=== PATIENT | female | born 1945 | race Caucasian/White ===

== ENCOUNTER 2020-04-20 07:39 | Outpatient (CLI) | payer MEDICARE, SELFPAY ==
--- NOTE | ~2020-04-20 | US_ITS ---
EXAMINATION: US arterial duplex LE DATE: 04/20/2020 10:14 INDICATION: Bilateral lower limb pain TECHNIQUE: Multiple grayscale and Doppler ultrasound images of the arteries of the bilateral lower li mbs were obtained. COMPARISON: None FINDINGS: Biphasic waveform at the right profunda femoral artery and triphasic waveforms in the right common fe moral, superficial femoral, popliteal, posterior tibial and dorsalis pedis arteries with brisk systol ic upstrokes throughout. There is significant focal flow acceleration within the mid left superficial femoral artery consistent with significant stenosis with peak systolic velocity proximal to the sten osis of 108 cm/s which increases to 423 cm/s distal to the stenosis. There are monophasic waveforms t hroughout the arteries of the left lower limb without significantly delayed upstrokes. IMPRESSION: 1. Focal stenosis in the mid left superficial femoral artery with hemodynamically significant acceler ation of flow. 2. No no evident significant stenosis in the right lower limb. Reviewed, dictated and finalized at location B. IMPRESSION: 1. Focal stenosis in the mid left superficial femoral artery with hemodynamical ly significant acceleration of flow. 2. No no evident significant stenosis in the right lower limb.
== END 2020-04-20 07:40 | disposition home or self-care (01) ==
PROVIDERS: PCP Family Medicine; Visit Provider Nurse Practitioner Family
DX: I73.9 Peripheral vascular disease, unspecified (principal)
CPT/HCPCS: 93925

== ENCOUNTER → 2021-04-25 13:32 | Outpatient (CLI) | payer MEDICARE, SELFPAY ==
--- NOTE | ~2021-04-25 | MM_ITS ---
EXAMINATION: MM screening bob BI w radu HISTORY: Screening mammogram TECHNIQUE: Craniocaudal and mediolateral oblique 3-D tomosynthesis images were obtained and synthetic 2-D images were generated. CAD analysis was submitted and interpreted. COMPARISON: 06/07/2018, 05/15/2015, 12/03/2011 bilateral digital screening mammogram examinations BREAST PARENCHYMAL COMPOSITION: There are scattered areas of fibroglandular density. FINDINGS: There is no evidence of suspicious mass, calcification, or architectural distortion to sugg est malignancy in either breast. There has been no suspicious interval change. IMPRESSION: 1. No mammographic evidence of malignancy. 2. Recommend routine screening mammography in one year. BI-RADS Category 1: Negative Reviewed, dictated and finalized at location A.
== END ==
PROVIDERS: PCP Family Medicine; Visit Provider Family Medicine
DX: Z12.31 Encounter for screening mammogram for malignant neoplasm of breast (principal)
CPT/HCPCS: 77063; 77067

== ENCOUNTER 2021-06-19 07:32 | Outpatient (CLI) | payer MEDICARE, SELFPAY ==
--- NOTE | ~2021-06-19 | CT_ITS ---
EXAMINATION: CT diagnostic chest wo con DATE: 06/19/2021 07:55 INDICATION: Lung nodule TECHNIQUE: Computed tomography (CT) of the chest was performed without intravenous contrast. The dose -length product (DLP) was 420.04 mGy-cm. 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 COMPARISON: 04/11/2019 FINDINGS: There is a 5 mm lymph node in the minor fissure on the right. No suspicious pulmonary nodul es are identified. There is mild emphysema. There are patchy, peripheral prominent airspace opacities of the lungs (patient has history of COVID 19 pneumonia). There is no pleural effusion or pneumothor ax. No pathologically enlarged thoracic lymph nodes are identified. Cardiomegaly is noted. Calcified coronary artery atherosclerosis is noted. Stones are present in the gallbladder which is mildly diste nded. There is severe thoracic spondylosis. IMPRESSION: 1. Stable lymph node of the right minor fissure. 2. Patchy subpleural opacities of the lungs, likely related to history of COVID 19 pneumonia. 3. Cholelithiasis with gallbladder distention. Recommend correlation for right upper quadrant tendern ess which would be concerning for cholecystitis. Reviewed, dictated and finalized at location B. IMPRESSION: 1. Stable lymph node of the right minor fissure. 2. Patchy subpleural opacities of the lungs, likely related to history of COVID 19 pneumonia. 3. Cholelithiasis with gallbladder distention. Recommend correlation for right upper quadrant tenderness which would be concerning for cholecystitis.
== END 2021-06-19 07:33 | disposition home or self-care (01) ==
LOC: ANHIMG 07:38
PROVIDERS: PCP Family Medicine; Visit Provider Internal Medicine Pulmonary Disease
DX: J44.9 Chronic obstructive pulmonary disease, unspecified (principal); R91.1 Solitary pulmonary nodule; K80.20 Calculus of gallbladder without cholecystitis without obstruction
CPT/HCPCS: 71250

== ENCOUNTER → 2021-06-19 09:13 | Outpatient (CLI) | payer MEDICARE, SELFPAY ==
--- NOTE | ~2021-06-19 | XR_ITS ---
EXAMINATION: XR chest 2V DATE: 06/19/2021 09:28 INDICATION: History of COVID 19 TECHNIQUE: PA and lateral views of the chest are obtained. COMPARISON: Chest CT from today FINDINGS: There are patchy peripheral opacities of the lungs. There is no pleural effusion or pneumot horax. The cardiomediastinal silhouette is normal. There is severe thoracic spondylosis. IMPRESSION: 1. Patchy peripheral opacities of the lungs which are consistent with sequela of COVID 19 pneumonia. Correlate for any acute symptoms. Reviewed, dictated and finalized at location B. IMPRESSION: 1. Patchy peripheral opacities of the lungs which are consistent with sequela o f COVID 19 pneumonia. Correlate for any acute symptoms.
== END ==
PROVIDERS: PCP Family Medicine
DX: Z86.16 Personal history of COVID-19 (principal); M47.814 Spondylosis without myelopathy or radiculopathy, thoracic region
CPT/HCPCS: 71046

== ENCOUNTER 2021-06-21 10:22 | Emergency (ER) | payer MEDICARE, SELFPAY ==
[2021-06-21] VITALS (24 sets, daily range): BP systolic 141–201; BP diastolic 52–77; PULSE 51–81; RESP 14–27; TEMP 36.2; O2SAT 90–99
--- NOTE | ~2021-06-21 | XR_ITS ---
EXAMINATION: XR chest 2V EXAM DATE: 06/21/2021 10:50 INDICATION: Dull chest pain for 4 days. TECHNIQUE: Frontal and lateral projections of the chest obtained and reviewed. Comparison is made to prior examination from 06/19/2021. FINDINGS: There is cardiomegaly and pulmonary vascular congestion. Cardiomegaly and pulmonary vascul ar congestion. Scattered calcific densities, postinfectious. No confluent consolidation, pneumothorax or pleural effusion suspected. Moderate thoracic spondylosis. There is aortic arteriosclerosis. IMPRESSION: Cardiomegaly and pulmonary vascular congestion. Reviewed, dictated and finalized at location A.
--- NOTE | ~2021-06-21 | US_ITS ---
EXAMINATION: US venous doppler [facility] DATE: 06/21/2021 13:21 INDICATION: Bilateral lower limb swelling TECHNIQUE: Haley scale images without and with compression and Doppler images of the bilateral lower e xtremity veins were obtained. COMPARISON: 02/07/2019 FINDINGS: The examination is limited by the patient's body habitus. The right common femoral vein, profunda femoral vein, femoral vein, popliteal vein, and greater saphe nous vein are patent. The posterior tibial and peroneal veins are not well evaluated due to body habi tus. The left common femoral vein, profunda femoral vein, femoral vein, popliteal vein, and greater saphen ous vein are patent. The posterior tibial and peroneal veins are not well evaluated due to body habit us. IMPRESSION: 1. Patent bilateral lower extremity veins. No evidence of deep venous thrombosis. Bilateral posterior tibial and peroneal veins not well demonstrated due to body habitus. Reviewed, dictated and finalized at location B. IMPRESSION: 1. Patent bilateral lower extremity veins. No evidence of deep venous thrombosi s. Bilateral posterior tibial and peroneal veins not well demonstrated due to b reg habitus.
--- NOTE | 2021-06-21 10:36 | ECG_ITS ---
Measurements Intervals [place] Rate: 63 P: 42 MO: 164 QRS: -59 QRSD: 137 T: 72 QT: 406 QTc: 416 Interpretive Statements SINUS RHYTHM WITH MARKED SINUS ARRHYTHMIA LEFT AXIS DEVIATION INTRAVENTRICULAR CONDUCTION DELAY LEFT ANTERIOR FASCICULAR BLOCK LEFT VENTRICULAR HYPERTROPHY AND ST-T CHANGE POOR R WAVE PROGRESSION, ANTERIOR LEADS BASELINE ARTIFACT- I, II, III, AVR, AVL, AVF, V2-V6 ABNORMAL ECG Electronically Signed On 06-21-2021 10:39:41 CDT by Benton Singh D.O.
[2021-06-21 11:08] LABS: Basophils Percent Auto 0.4 % (0.2-1.2); Eosinophils Absolute Auto 0.1 K/mm3 (0-0.3); Eosinophils Percent Auto 1.3 % (0-4.4); Hematocrit 43.4 % (37.0-47.0); Hemoglobin 14.1 g/dL (12.0-15.0); Immature Granulocyte Absolute 0.05 K/mm3 (0.00-0.031); Immature Granulocyte Percent A 0.6 % (0-0.5); Lymphocytes Absolute Auto 1.35 K/mm3 (0.9-3.2); Lymphocytes Percent Auto 14.9 % (18.3-44.2); Mean Corpuscular HGB Conc 32.5 g/dl (32-36); Mean Corpuscular Hemoglobin 27.7 pg (26-34); Mean Corpuscular Volume 85.3 fl (80-100); Mean Platelet Volume 9.5 fl (7.4-10.4); Monocytes Absolute Auto 0.6 K/mm3 (0.1-0.6); Monocytes Percent Auto 6.3 % (2.6-8.5); Neutrophils Percent Auto 76.5 % (45.5-73.1); Platelet Count Result 334 k/mm3 (150-375); Red Blood Count 5.09 M/mm3 (4.2-5.4); Red Cell Distribution Width 13.5 % (11.5-14.5); White Blood Count 9.1 K/mm3 (4.5-10.0)
[2021-06-21 11:24] LABS: Anion Gap 11 mmol/L (8-16); Blood Urea Nitrogen 23 mg/dL (7-17); Calcium 10.8 mg/dL (8.4-10.2); Carbon Dioxide 27 mmol/L (22-30); Chloride 105 mmol/L (98-107); Estimated CRCL calculation 54 ml/min; Estimated Glomerular Filt Rate 48; Glucose 143 mg/dL (65-110); Sodium 143 mmol/L (137-145)
[2021-06-21 11:36] LABS: INR 0.9; Prothrombin Time 12.2 Seconds (11.1-14.7)
[2021-06-21 11:36] LABS: Troponin I < 0.012 ng/mL (0.000-0.034)
[2021-06-21 11:37] LABS: Partial Thromboplastin Time 23.5 SECONDS (22.3-36.8)
[2021-06-21 11:53] LABS: NT Pro B Type Natriuretic Pept 466 pg/mL (5-100)
--- NOTE | 2021-06-21 12:00 | PC.NURSE ---
Pt has bilateral leg swelling, reports right leg feels tighter than left although not obviously apparent on inspection. MD aware, ordering dopplers.
--- NOTE | 2021-06-21 12:14 | PC.NURSE ---
pt off floor for dopplers
--- NOTE | 2021-06-21 12:45 | ED.CHESTPAIN ---
HPI - Chest Pain General Chief Complaint: Chest Pain Stated Complaint: chest pain Time Seen by Provider: 06/21/21 10:33 History of Present Illness HPI narrative: Patient is a 76-year-old female who presents ER with concerns for chest pain. Patient reports 4 days ago she was having central chest pain and thinks it was related to her blood pressure being 210 mmHg systolic. She reports she took an extra dose of her medication her blood pressure normalized. She has been doing well since then. She saw her physician assistant press operator offset today who was concerned that patient was having some mild chest discomfort and had an abnormal EKG. She referred her to the ER for further evaluation. Patient reports she has a fringe maker at [facility]. She had a stress test last month that she believes was unremarkable. She reports compliance with home medications. She recently increased her spironolactone. Reports chronic shortness of breath related to COPD. The chest pain she currently has is left-sided and achy in the upper chest. No radiation. Unknown aggravating or alleviating factors. Related Data Allergies Allergy/AdvReac Type Severity Reaction Status Date / Time No Known Allergies Allergy Verified 06/21/21 11:59 Review of Systems Review of Systems: All systems reviewed & are unremarkable except as noted in HPI and below Constitutional: Constitutional: Denies chills, Denies fever(s) and Denies weakness ENT: Denies nasal congestion and Denies sore throat Cardiovascular: Cardiovascular: Reports chest pain, Denies rapid heart rate and Denies radiating jaw, neck or arm pain Respiratory: Respiratory: Denies cough, Reports dyspnea and Denies wheezing Gastrointestinal: Gastrointestinal: Denies abdominal pain, Denies nausea and Denies vomiting Musculoskeletal: Musculoskeletal: Denies muscle cramps Comments: Lower extremity edema PMFSH Past Medical History Medical History (Updated 06/21/21 @ 15:22 by Daniel Johnson MD) COPD (chronic obstructive pulmonary disease) Diabetes Hypertension Hypothyroidism Peripheral neuropathy Surgical History Surgical History (Updated 06/21/21 @ 13:09 by Daniel Johnson MD) H/O hernia repair History of dilation and curettage Family History Family History (Updated 05/25/14 @ 08:38 by DOCTOR UNKNOWN) Mother Family history of lung cancer Father Family history of heart disease in male family member before age 55 Other Family history of allergic disorder Hypertension Social History Social History Smoking status: Former smoker Smoking end date: 08/17/83 Alcohol intake: current Exam Narrative: GENERAL: Chronically ill-appearing, obese, and in no acute distress. HEAD: Normocephalic, atraumatic. EYES: PERRL and EOMI. CHEST: Clear to auscultation. No respiratory distress. HEART: Regular rate and rhythm. Normal peripheral pulses. ABDOMEN: Soft, nontender, nondistended. EXTREMITIES: Normal range of motion. 2+ edema. SKIN: Warm, dry, no rash. NEURO: Alert and oriented x3. PSYCH: Normal mood and affect. Course Reevaluation(s) Reevaluation #1: Patient resting comfortably. Informed results. Chest pain not present. Troponin negative x2. BMP within normal limits for age adjustment. No DVT. Will contact patient's fringe maker to discuss care. Patient's blood pressure has been running in the 160s after initial elevated blood pressure at arrival. Heart rate ranges between 50 and 77 bpm. Date: 06/21/21 Time: 14:50 Reevaluation #2: Discussed with Ria SOLIS at [facility]. Will not change BP meds. They will have the patient f/u next week. Patient has had a negative stress test in the last month and had a normal echo with EF of 70%. Date: 06/21/21 Time: 15:19 Vital Signs Vital signs: Vital Signs Temperature 97.1 F L 06/21/21 10:27 Pulse Rate 75 06/21/21 10:27 Respiratory Rate 18 06/21/21 10:27 Blood Pressure 201/77 H 06/21/21 10:27 Pulse Oximetry 97 06/21/21
[2021-06-21 14:34] LABS: Troponin I < 0.012 ng/mL (0.000-0.034)
--- NOTE | 2021-06-21 15:00 | PC.NURSE ---
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 Second troponin negative. Updated patient.
== END 2021-06-21 15:50 | disposition home or self-care (01) ==
PROVIDERS: Emergency Provider Emergency Medicine
DX: I10 Essential (primary) hypertension (principal); J44.9 Chronic obstructive pulmonary disease, unspecified; E11.42 Type 2 diabetes mellitus with diabetic polyneuropathy; E03.9 Hypothyroidism, unspecified; Z87.891 Personal history of nicotine dependence; I51.7 Cardiomegaly; R09.89 Other specified symptoms and signs involving the circulatory and respiratory systems; R06.02 Shortness of breath
CPT/HCPCS: 36415; 71046; 80048; 83880; 84484; 85025; 85610; 85730; 93005; 93970; 99284

== ENCOUNTER 2021-07-28 06:03 | Emergency (ER) | payer MEDICARE, SELFPAY ==
--- NOTE | ~2021-07-28 | XR_ITS ---
EXAMINATION: XR abdomen obstructive series DATE: 07/28/2021 07:39 INDICATION: Diarrhea and nausea TECHNIQUE: Upright and supine views of the abdomen were obtained. COMPARISON: None. FINDINGS: Motion artifact slightly limits the examination. No free intraperitoneal gas is identified. Gas and stool are seen throughout the colon. No dilated loops of bowel are evident. There is severe lumbar spondylosis. IMPRESSION: 1. Nonobstructive bowel gas pattern, sensitivity limited by motion. Reviewed, dictated and finalized at location A. OSURGERY PHYSICIAN
[2021-07-28 06:05] VITALS: BP 180/85; PULSE 116; RESP 20; TEMP 36.6; O2SAT 95
[2021-07-28 06:16] VITALS: BP 171/74; PULSE 96; RESP 22; TEMP 36.7; O2SAT 97
[2021-07-28 06:47] LABS: Basophils Percent Auto 0.3 % (0.2-1.2); Eosinophils Absolute Auto 0.1 K/mm3 (0-0.3); Eosinophils Percent Auto 1.4 % (0-4.4); Hematocrit 44.1 % (37.0-47.0); Hemoglobin 14.3 g/dL (12.0-15.0); Immature Granulocyte Absolute 0.04 K/mm3 (0.00-0.031); Immature Granulocyte Percent A 0.6 % (0-0.5); Lymphocytes Absolute Auto 1.27 K/mm3 (0.9-3.2); Lymphocytes Percent Auto 17.6 % (18.3-44.2); Mean Corpuscular HGB Conc 32.4 g/dl (32-36); Mean Corpuscular Hemoglobin 27.3 pg (26-34); Mean Corpuscular Volume 84.3 fl (80-100); Mean Platelet Volume 9.6 fl (7.4-10.4); Monocytes Absolute Auto 0.6 K/mm3 (0.1-0.6); Monocytes Percent Auto 7.6 % (2.6-8.5); Neutrophils Absolute Auto 5.2 K/mm3 (1.3-6.7); Neutrophils Percent Auto 72.5 % (45.5-73.1); Platelet Count Result 325 k/mm3 (150-375); Red Blood Count 5.23 M/mm3 (4.2-5.4); Red Cell Distribution Width 13.6 % (11.5-14.5); White Blood Count 7.2 K/mm3 (4.5-10.0)
[2021-07-28 07:02] LABS: Alanine Aminotransferase 18 U/L (4-35); Albumin Level 4.8 g/dL (3.5-5.1); Alkaline Phosphatase 144 U/L (38-126); Anion Gap 13 mmol/L (8-16); Aspartate Amino Transferase 31 U/L (14-36); Bilirubin,Total 0.9 mg/dL (0.2-1.3); Blood Urea Nitrogen 19 mg/dL (7-17); Calcium 10.4 mg/dL (8.4-10.2); Carbon Dioxide 18 mmol/L (22-30); Chloride 104 mmol/L (98-107); Estimated CRCL calculation 53 ml/min; Estimated Glomerular Filt Rate 48; Glucose 151 mg/dL (65-110); Lipase 26 U/L (23-300); Sodium 135 mmol/L (137-145)
[2021-07-28 07:39] LABS: Add Urine Microscopic? YES; Appearance Urine Cloudy (Clear); Bacteria Urine Trace /hpf; Bilirubin Urine Negative (Negative); Blood Urine 1+ (Negative); Color Urine Yellow (Yellow); Glucose Urine UA Negative (Negative); Ketones Urine Negative (Negative); Leukocyte Esterase Ur 2+ LEU/UL (Negative); Mucus Urine Rare /lpf; Nitrate Urine Positive (Negative); Protein Urine 2+ mg/dL (Negative); Specific Grav Ur 1.014 (1.001-1.035); Squamous Epithelial Cell Urine Many /hpf (Few); Urobilinogen Urine Negative mg/dL (<2.0); WBC Urine 51-75 /hpf
[2021-07-28] MEDS: SODIUM CHLORIDE 0.9% IV 1,000 ML 999 ML IV CONT (07:43)
[2021-07-28 08:00] VITALS: BP 176/78; PULSE 91; RESP 16; O2SAT 100
--- NOTE | 2021-07-28 08:11 | ED.GENADULT ---
HPI - General Adult General Chief complaint: Nausea/Vomiting/Diarrhea Stated complaint: elevated b/p Time Seen by Provider: 07/28/21 07:25 Source: patient Mode of arrival: ambulatory Limitations: no limitations History of Present Illness HPI narrative: Patient reports to having watery diarrhea start with 1 week ago, got better on Imodium and Pepto-Bismol by her family physician, in the last 2 days the diarrhea came back again, on average 10-15 times a day. Patient denies any fever, chills, nausea, vomiting, body aches, headache, urinary symptoms or abdominal pain. Just intermittent generalized cramps every now and then relieved by bowel movement. Patient denies similar symptoms. Patient denies any new medications in the last few weeks or new diet. Patient had a bowel movement prior to arrival to the emergency room. Related Data Allergies Allergy/AdvReac Type Severity Reaction Status Date / Time No Known Allergies Allergy Verified 07/28/21 06:19 Review of Systems Review of Systems: CONSTITUTIONAL: Denies fever, chills, or sweats. EYES: Denies visual changes, redness, or discharge. ENT: Denies rhinorrhea, congestion, sore throat, or otalgia. CARDIOVASCULAR: Denies chest pain, palpitations, or edema. RESPIRATORY: Denies cough or dyspnea. GASTROINTESTINAL: Denies abdominal pain, nausea, vomiting, or diarrhea. GENITOURINARY: Denies dysuria or hematuria. SKIN: Denies rash or itching. MUSCULOSKELETAL: Denies back pain, joint pain, or myalgia. NEUROLOGIC: Denies headache, numbness, or weakness. PSYCHIATRIC: Denies anxiety or depression. [facility] Past Medical History Medical History COPD (chronic obstructive pulmonary disease) Diabetes Hypertension Hypothyroidism Peripheral neuropathy Surgical History Surgical History H/O hernia repair History of dilation and curettage Family History Family History Mother Family history of lung cancer Father Family history of heart disease in male family member before age 55 Other Family history of allergic disorder Hypertension Social History Social History Smoking status: Former smoker Smoking end date: 08/17/83 Alcohol intake: current Exam Narrative: General appearance: Well-developed, well-nourished Skin: Normal color Head: Normocephalic, nontraumatic Eyes: Clear conjunctiva ENT: Oropharynx normal, ears normal, nose normal Neck: Supple, nontender Chest and respiratory: Airway patent, no respiratory distress, no accessory muscle use Heart: Regular rate/rhythm Abdomen: Soft, nontender, no organomegaly, quiet bowel sounds Vascular: Normal peripheral pulses, normal capillary refill. Musculoskeletal: Normal range of motion, nontender back Neurologic: Alert and oriented ?3, PRODUCTION CONTROL CLERK is normal as tested, no gross motor deficit Course Course Emergency Course: Stable Vital Signs Vital signs: Vital Signs Temperature 36.6 C 07/28/21 06:05 Pulse Rate 116 H 07/28/21 06:05 Respiratory Rate 20 07/28/21 06:05 Blood Pressure 180/85 H 07/28/21 06:05 Pulse Oximetry 95 07/28/21 06:05 Temperature 36.7 C 07/28/21 06:16 Pulse Rate 91 07/28/21 08:00 Respiratory Rate 16 07/28/21 08:00 Blood Pressure 176/78 H 07/28/21 08:00 Pulse Oximetry 100 07/28/21 08:00 Medical Decision Making [facility] Narrative Medical decision making narrative: Diarrhea Viral, inflammatory are my concern. Work-up did not show any significant findings to explain patient condition. Urine analysis [place]
[2021-07-28 09:02] VITALS: BP 161/70; PULSE 91; RESP 18; O2SAT 98
== END 2021-07-28 09:04 | disposition home or self-care (01) ==
PROVIDERS: Emergency Medicine; Emergency Provider Emergency Medicine; PCP Family Medicine
DX: R19.7 Diarrhea, unspecified (principal); J44.9 Chronic obstructive pulmonary disease, unspecified; I10 Essential (primary) hypertension; E03.9 Hypothyroidism, unspecified; E11.42 Type 2 diabetes mellitus with diabetic polyneuropathy; Z87.891 Personal history of nicotine dependence; R82.998 Other abnormal findings in urine
CPT/HCPCS: 36415; 74019; 80053; 81001; 83690; 85025; 87077; 87086; 87186; 96360; 99283; J7030

== ENCOUNTER 2022-08-26 16:20 | Emergency (ER) | payer MEDICARE, SELFPAY ==
[2022-08-26] VITALS (13 sets, daily range): BP systolic 103–194; BP diastolic 41–97; PULSE 67–71; RESP 17–18; TEMP 36.8; O2SAT 93–95
[2022-08-26 18:42] LABS: Basophils Percent Auto 0.4 % (0.2-1.2); Eosinophils Absolute Auto 0.1 K/mm3 (0-0.3); Eosinophils Percent Auto 1.1 % (0-4.4); Hematocrit 43.4 % (37.0-47.0); Hemoglobin 13.6 g/dL (12.0-15.0); Immature Granulocyte Absolute 0.07 K/mm3 (0.00-0.031); Immature Granulocyte Percent A 0.7 % (0-0.5); Lymphocytes Absolute Auto 1.62 K/mm3 (0.9-3.2); Lymphocytes Percent Auto 16.8 % (18.3-44.2); Mean Corpuscular HGB Conc 31.3 g/dl (32-36); Mean Corpuscular Volume 86.3 fl (80-100); Mean Platelet Volume 9.5 fl (7.4-10.4); Monocytes Absolute Auto 0.6 K/mm3 (0.1-0.6); Monocytes Percent Auto 6.3 % (2.6-8.5); Neutrophils Absolute Auto 7.2 K/mm3 (1.3-6.7); Neutrophils Percent Auto 74.7 % (45.5-73.1); Platelet Count Result 298 k/mm3 (150-375); Red Blood Count 5.03 M/mm3 (4.2-5.4); Red Cell Distribution Width 13.8 % (11.5-14.5); White Blood Count 9.6 K/mm3 (4.5-10.0)
--- NOTE | 2022-08-26 18:42 | ED.WOUNDLAC ---
HPI - Wound/Laceration General Chief Complaint: Wound/Laceration Stated Complaint: TOE INFECTION Time Seen by Provider: 08/26/22 18:15 Source: patient Mode of arrival: ambulatory Limitations: no limitations History of Present Illness HPI narrative: This is a 77 year old female that presents to the ER for right 2nd toe redness and swelling noted since yesterday. Reports she bumped the toe on Thursday. Reports some bruising and pain to the area initially. She was seen at urgent care and sent to the ER for further evaluation. Denies fever, laceration or abnormal drainage. Related Data Allergies Allergy/AdvReac Type Severity Reaction Status Date / Time No Known Allergies Allergy Verified 08/26/22 18:29 Review of Systems Review of Systems: CONSTITUTIONAL: Denies fever SKIN: Reports redness and swelling MUSCULOSKELETAL: Reports joint pain, and myalgia. All systems reviewed & are unremarkable except as noted in HPI and below PMFSH Past Medical History Medical History COPD (chronic obstructive pulmonary disease) Diabetes Hypertension Hypothyroidism Peripheral neuropathy Surgical History Surgical History H/O hernia repair History of dilation and curettage Family History Family History Mother Family history of lung cancer Father Family history of heart disease in male family member before age 55 Other Family history of allergic disorder Hypertension Social History Social History Smoking status: Former smoker Smoking end date: 08/17/83 Alcohol intake: current Exam Narrative: GENERAL: Well-appearing, well-nourished, and in no acute distress. HEAD: Normocephalic, atraumatic. EYES: EOMI. CHEST: Clear to auscultation. No respiratory distress. No wheezes rales or rhonchi HEART: Regular rate and rhythm. No murmur heard. Normal peripheral pulses. EXTREMITIES: Normal range of motion. Mild to moderate edema and erythema of the right 2nd toe without fluctuance to suggest abscess. Normal DP pulse SKIN: Warm, dry, no rash. NEURO: No focal deficits. Alert and oriented x3. PSYCH: Normal mood and affect Course Course Emergency Course: Patient and family updated on work-up. Agree with plan of care Vital Signs Vital signs: Vital Signs Temperature 98.2 F 08/26/22 17:37 Pulse Rate 71 08/26/22 17:37 Respiratory Rate 18 08/26/22 17:37 Blood Pressure 194/97 H 08/26/22 17:37 Pulse Oximetry 94 08/26/22 17:37 Oxygen Delivery Room Air 08/26/22 17:37 Temperature 98.2 F 08/26/22 17:37 Pulse Rate 67 08/26/22 18:22 Respiratory Rate 17 08/26/22 18:22 Blood Pressure 103/70 08/26/22 18:48 Pulse Oximetry 94 08/26/22 18:48 Oxygen Delivery Room Air 08/26/22 18:22 MDM - Wound/Laceration MDM Narrative Medical decision making narrative: Patient presents to the emergency department for red and swelling of the right second toe ongoing since yesterday. She is afebrile and nontoxic-appearing. Hypertensive upon arrival, this normalized without intervention. She does have redness and swelling to the second toe on the right foot. There is no redness or swelling into the foot. She had an x-ray at urgent care which showed a possible nondisplaced fracture of the middle phalanx of this toe. Reports she had stubbed her toe a couple of days ago. She is neurovascularly intact. CBC is without leukocytosis. Inflammatory markers are mildly elevated. There is no evidence for an abscess on exam at this time. Patient and family were updated on work-up. Will be treated with antibiotics for cellulitis. Given first dose IV in the ED. Will be discharged on oral antibiotics. She was instructed to have close follow-up with her primary provider. She was given warnings to return to the ER Differential
[2022-08-26 18:55] LABS: Anion Gap 8 mmol/L (8-16); Blood Urea Nitrogen 19 mg/dL (7-17); CRP 1.4 mg/dL (<1.0); Calcium 9.6 mg/dL (8.4-10.2); Carbon Dioxide 25 mmol/L (22-30); Chloride 111 mmol/L (98-107); Estimated CRCL calculation 48 ml/min; Estimated Glomerular Filt Rate 44; Glucose 106 mg/dL (65-110); Sodium 144 mmol/L (137-145)
[2022-08-26 19:37] LABS: Erythrocyte Sedimentation Rate 38 mm/hr (0-20)
== END 2022-08-26 20:28 | disposition home or self-care (01) ==
PROVIDERS: Emergency Provider Physician Assistant; PCP Family Medicine
DX: L03.031 Cellulitis of right toe (principal); S92.524A Nondisplaced fracture of middle phalanx of right lesser toe(s), initial encounter for closed fracture; J44.9 Chronic obstructive pulmonary disease, unspecified; E11.9 Type 2 diabetes mellitus without complications; I10 Essential (primary) hypertension; E03.9 Hypothyroidism, unspecified; W22.8XXA Striking against or struck by other objects, initial encounter
CPT/HCPCS: 36415; 80048; 85025; 85652; 86140; 96365; 99284; J0690

== ENCOUNTER 2024-02-17 11:19 | Outpatient (CLI) | payer MEDICARE, SELFPAY ==
--- NOTE | ~2024-02-17 | MM_ITS ---
EXAMINATION: MM screening bob BI w radu HISTORY: Screening mammogram TECHNIQUE: Craniocaudal and mediolateral oblique 3-D tomosynthesis images were obtained and synthetic 2-D images were generated. CAD analysis was submitted and interpreted. COMPARISON: 05/06/2021, 06/07/2018 BREAST PARENCHYMAL COMPOSITION:Not Dense. There are scattered areas of fibroglandular density. FINDINGS: No suspicious mass, calcification, or architectural distortion are identified in either gemma ast to suggest malignancy. There has been no suspicious interval change. IMPRESSION: No mammographic evidence of malignancy. Recommend routine screening mammography in one year. BI-RADS Category 1: Negative Reviewed, dictated and finalized at location .
== END 2024-02-17 11:20 ==
PROVIDERS: Visit Provider Family Medicine
DX: Z12.31 Encounter for screening mammogram for malignant neoplasm of breast (principal)
CPT/HCPCS: 77063; 77067